=== PATIENT | female | born 1990 | race Caucasian/White ===

== ENCOUNTER 2016-06-24 14:44 | Emergency (ER) | payer SELFPAY ==
--- NOTE | 2016-06-24 15:21 | ER Document Report ---
ED Medical Screen (RME) - General Stated Complaint: DIFFICULTY BREATHING Mode of Arrival: Ambulatory Information source: Patient Notes: Patient reports cough, wheezing and high fever for the past 4 days. Patient reports feeling faint earlier today. hx: jennifer bailey I have greeted and performed a rapid initial assessment of this patient. A comprehensive ED assessment and evaluation of the patient, analysis of test results and completion of the medical decision making process will be conducted by additional ED providers. - Related Data Allergies/Adverse Reactions: acetaminophen Allergy (Verified 06/24/16 15:17) amoxicillin Allergy (Verified 06/24/16 15:17) Physical Exam - Vital signs Vitals: Temp Pulse Resp BP Pulse Ox 97.9 F 125 H 21 H 121/92 H 96 06/24/16 15:15 06/24/16 15:15 06/24/16 15:15 06/24/16 15:15 06/24/16 15:15 - Respiratory Breath sounds: Nonproductive cough - Cardiovascular Rhythm: Tachycardia Heart sounds: S1 appreciated, S2 appreciated Course - Vital Signs Vital signs: Temp Pulse Resp BP Pulse Ox 97.9 F 125 H 21 H 121/92 H 96 06/24/16 15:15 06/24/16 15:15 06/24/16 15:15 06/24/16 15:15 06/24/16 15:15
--- NOTE | 2016-06-24 15:58 | ER Document Report ---
ED General - General Mode of Arrival: Ambulatory Information source: Patient TRAVEL OUTSIDE OF THE [place] IN LAST 30 DAYS: No - HPI Onset: Other - see HPI note Associated symptoms: Productive cough, Diarrhea, Fever, Nausea, Vomiting Exacerbated by: Deep breathing <SHARMIN YOUSIF - Last Filed: 06/24/16 16:47> <CLAIRCHARO RODRIGUEZ MARIANNE - Last Filed: 06/24/16 22:25> - General Chief Complaint: Cough Stated Complaint: DIFFICULTY BREATHING Notes: Patient is a 26 year old female presenting to the emergency department complaining of cough for the past 4 days. Patient denies any asthma history. 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 Patient states he is having some difficulty when trying to take a deep breath because she feels "mucus on her chest." Patient states she has been coughing up blood and mucus. Patient also complains of some vomiting and diarrhea. Patient states she had a fever of 102 F at home. Patient told triage that she also has a history of methamphetamine use but states she has not been using it for 1 month and 2 days now. Patient did not receive a flu vaccination this season. Patient is allergic to Tylenol. (SHARMIN YOUSIF) - Related Data Allergies/Adverse Reactions: acetaminophen Allergy (Verified 06/24/16 15:17) amoxicillin Allergy (Verified 06/24/16 15:17) Past Medical History - General Information source: Patient - Social History Smoking Status: Never Smoker Cigarette use (# per day): No Chew tobacco use (# tins/day): No Frequency of alcohol use: None Family History: None Patient has suicidal ideation: No Patient has homicidal ideation: No - Medical History Medical History: Other - Guillain-Tunica syndrome Surgical Hx: Negative - Immunizations History of Influenza Vaccine for 01/2016 - 06/2016 Season: No <SHARMIN YOUSIF - Last Filed: 06/24/16 16:47> Review of Systems - Review of Systems Constitutional: See HPI, Fever EENT: No symptoms reported Cardiovascular: No symptoms reported Respiratory: See HPI, Cough, Hurts to breathe, Sputum Gastrointestinal: See HPI, Diarrhea, Nausea, Vomiting Genitourinary: No symptoms reported Female Genitourinary: No symptoms reported Musculoskeletal: No symptoms reported Skin: No symptoms reported Hematologic/Lymphatic: No symptoms reported Neurological/Psychological: No symptoms reported -: Yes All other systems reviewed and negative <SHARMIN YOUSIF - Last Filed: 06/24/16 16:47> Physical Exam - Vital signs Interpretation: Tachycardic - General General appearance: Appears well, Alert In distress: Mild - HEENT Head: Normocephalic, Atraumatic Eyes: Normal Pupils: PERRL Mucous membranes: Moist - Respiratory Respiratory status: No respiratory distress Chest status: Nontender Breath sounds: Normal Chest palpation: Normal - Cardiovascular Rhythm: Regular, Tachycardia Heart sounds: Normal auscultation Murmur: No - Abdominal Inspection: Normal Distension: No distension Bowel sounds: Normal Tenderness: Nontender Organomegaly: No organomegaly - Back Back: Normal, Nontender - Extremities General upper extremity: Normal inspection, Normal ROM, Normal strength General lower extremity: Normal inspection, Normal ROM, Normal strength - Neurological Neuro grossly intact: Yes Cognition: Normal Orientation: AAOx4 Moon Coma Scale Eye Opening: Spontaneous Moon Coma Scale Verbal: Oriented Moon Coma Scale Motor: Obeys Commands Moon Coma Scale Total: 15 Speech: Normal - Psychological Associated symptoms: Normal affect, Anxious - Skin Skin Temperature: Warm Skin Moisture: Dry Skin Color: Other - multiple tattoos present <SHARMIN YOUSIF - Last Filed: 06/24/16 16:47> <CHARO MARRERO - Last Filed: 06/24/16 22:25> - Vital signs Vitals: Temp Pulse Resp BP Pulse Ox 97.9 F 125 H 21 H 121/92 H 96 06/24/16 15:15 06/24/16 15:15 06/24/16 15:15 06/24/16 15:15 06/24/16 15:15 (SHARMIN YOUSIF) (CHARO MARRERO) Course - Laboratory Result Diagrams: 06/24/16 15:32 06/24/16 15:32 <SHARMIN YOUSIF - Last Filed: 06/24/16 16:47> - Laboratory Result Diagrams: 06/24/16 15:32 06/24/16 15:32 - Diagnostic Test Radiology reviewed: Image reviewed, Reports reviewed <CHARO MARRERO - Last Filed: 06/24/16 22:25> - Re-evaluation Re-evalutation: 06/24/16 21:43 Patient initially presented with cough and difficulty breathing. Resolved issue nebulizer treatment, and then patient was complaining of right-sided abdominal pain. History of cholecystectomy. Pain was treated with Toradol with good effect. Patient was given morphine for increased pain after CT. Patient with no acute findings on blood work or imaging. Urine is pending for possible pyelonephritis. Pain is been controlled. Heart rate is on after fluids. Tolerating by mouth without difficulty. 06/24/16 22:16 Patient with bacteria on urine. Patient has had side pain and fever at home. Afebrile here. Patient was initially feeling better after Dilaudid and then became sweaty and felt like the room was spinning. Vomited once. Patient is going to be given a dose of Rocephin. She'll be discharged home with pain and nausea medication. The patient has been here now for 7-1/2 hours old like to go home. Will be discharged home after by mouth challenge. Pain is been controlled. 06/24/16 22:35 Feels better after Zofran. Tolerating by mouth. Patient has a recall a ride to come get her. Will be discharged home with pain medication, nausea medication, antibiotics. Return if any worsening or concerning symptoms. Stable for discharge. (CHARO MARRERO) - Vital Signs Vital signs: Temp Pulse Resp BP Pulse Ox 97.5 F 108 H 18 119/83 97 06/24/16 19:05 06/24/16 19:05 06/24/16 19:05 06/24/16 19:05 06/24/16 19:05 (SHARMIN YOUSIF) (CHARO MARRERO) - Laboratory Laboratory results interpreted by mi: 06/24/16 06/24/16 15:32 21:18 Carbon Dioxide 20 L Urine Urobilinogen 4.0 H (CHARO MARRERO) Discharge <SHARMIN YOUSIF - Last Filed: 06/24/16 16:47> <CHARO MARRERO - Last Filed: 06/24/16 22:25> - Discharge Clinical Impression: Pyelonephritis Condition: Stable Disposition: HOME, SELF-CARE Instructions: Pyelonephritis ([facility]), Antinausea Medication ([facility]), Oral Narcotic Medication ([facility]), Antibiotic Therapy ([facility]) Prescriptions: Cefdinir [Omnicef 300 mg Capsule] 1 cap PO BID #30 capsule Ondansetron [Zofran Odt 4 mg Tablet] 1 - 2 tab PO Q4H PRN #15 tab.rapdis PRN Reason: For Nausea/Vomiting Tramadol HCl [Ultram 50 mg Tablet] 50 mg PO BIDP PRN #20 tablet PRN Reason: Forms: Return to Work Scribe Attestation: 06/24/16 22:21 I personally performed the services described in the documentation, reviewed and edited the documentation which was dictated to the scribe in my presence, and it accurately records my words and actions. (CHARO MARRERO) Scribe Documentation - Scribe Written by Scribe:: Sharmin Yousif 06/24/16 17:00 acting as scribe for :: Candi <SHARMIN YOUSIF - Last Filed: 06/24/16 16:47>
[2016-06-24 16:04] LABS: ABSOLUTE EOSINOPHILS # (AUTO) 0.1 10^3/uL (0.0-0.6); ABSOLUTE LYMPHOCYTES (AUTO) 1.9 10^3/uL (0.5-4.7); ABSOLUTE MONOCYTES (AUTO) 0.5 10^3/uL (0.1-1.4); ABSOLUTE NEUT (AUTO) 7.2 10^3/uL (1.7-8.2); BASOPHILS % (AUTO) 0.5 % (0-2); HEMATOCRIT 41.1 % (36.0-47.0); HEMOGLOBIN 14.1 g/dL (12.0-15.5); HGB HCT DIFFERENCE 1.2; LYMPHOCYTES % (AUTO) 19.5 % (13-45); MEAN CORPUSCULAR HGB CONC 34.4 g/dL (32.0-36.0); MEAN CORPUSCULAR VOLUME 81 fl (80-97); MONOCYTES % (AUTO) 4.8 % (3-13); RED BLOOD COUNT 5.05 10^6/uL (3.72-5.28); RED CELL DISTRIBUTION WIDTH 13.2 % (11.5-14.0); SEGMENTED NEUTROPHILS % (AUTO) 74.2 % (42-78); WHITE BLOOD COUNT 9.7 10^3/uL (4.0-10.5)
[2016-06-24 16:25] LABS: ALANINE AMINOTRANSFERASE 17 U/L (9-52); ALBUMIN 4.5 g/dL (3.5-5.0); ALKALINE PHOSPHATASE 86 U/L (38-126); ANION GAP 17 (5-19); ASPARTATE AMINO TRANSFERASE 24 U/L (14-36); BILIRUBIN,TOTAL 0.8 mg/dL (0.2-1.3); BLOOD UREA NITROGEN 8 mg/dL (7-20); CALCIUM 10.2 mg/dL (8.4-10.2); CARBON DIOXIDE 20 mmol/L (22-30); CHLORIDE 103 mmol/L (98-107); GLUCOSE 104 mg/dL (75-110); POTASSIUM 3.7 mmol/L (3.6-5.0); TOTAL PROTEIN 7.8 g/dL (6.3-8.2)
[2016-06-24] MEDS ORDERED: IPRATROPIUM/ALBUTEROL 0.5-2.5 MG/3 ML AMPUL NEB ONE (16:38)
[2016-06-24] MEDS ORDERED: KETOROLAC TROMETHAMINE INJ/PF 30 MG/1 ML SDV IV ONE (16:38)
[2016-06-24] MEDS ORDERED: NORMAL SALINE 1000 ML 1,000 ML IV ONE (17:44)
--- NOTE | 2016-06-24 18:06 | EKG REPORT ---
SEVERITY:- ABNORMAL ECG - SINUS TACHYCARDIA LEFT ATRIAL ABNORMALITY BORDERLINE T ABNORMALITIES, ANTERIOR LEADS : Confirmed by: Lakshmi Briggs MD 24-Jun-2016 18:05:58
[2016-06-24] MEDS ORDERED: MORPHINE SULFATE 10 MG/ML INJ IV ONE (18:58)
[2016-06-24] MEDS ORDERED: DIAZEPAM INJ 10 MG/2 ML DISP.SYRIN IV ONE (19:38)
[2016-06-24] MEDS ORDERED: MAG HYDROX/AL HYDROX/SIMETH SUSP 30 ML UDCUP PO ONE (20:11)
[2016-06-24] MEDS ORDERED: FAMOTIDINE 20 MG TABLET PO ONE (20:11)
[2016-06-24] MEDS ORDERED: SUCRALFATE 1 GM TABLET PO ONE (20:11)
[2016-06-24] MEDS ORDERED: HYDROMORPHONE HCL INJ/PF 2 MG/ML AMPULE IV ONE (20:54)
[2016-06-24] MEDS ORDERED: RINGERS SOLUTION,LACTATED 1,000 ML IV ONE (20:54)
[2016-06-24 21:43] LABS: APPEARANCE,URINE CLEAR; BILIRUBIN,URINE NEGATIVE (NEGATIVE); GLUCOSE, URINE NEGATIVE (NEGATIVE); KETONES,URINE NEGATIVE (NEGATIVE); LEUKOCYTE ESTERASE,URINE NEGATIVE (NEGATIVE); NITRITE,URINE NEGATIVE (NEGATIVE); PROTEIN,URINE NEGATIVE (NEGATIVE); URINE SPECIFIC GRAVITY > 1.060
[2016-06-24] MEDS ORDERED: CEFTRIAXONE 1 GM/D5W RTU 50 ML IV ONE (21:52)
[2016-06-24] MEDS ORDERED: HYDROCODONE/ACETAMINOPHEN 5-325 MG 6 TAB/DSPK PO PRN (22:12)
[2016-06-24] MEDS ORDERED: ONDANSETRON ODT 4 MG TAB (6 TAB/DSPK) PO PRN (22:12)
[2016-06-24] MEDS ORDERED: ONDANSETRON HCL INJ/PF 4 MG/2 ML SDV IV ONE (22:14)
[2016-06-24 23:36] VITALS: BP 129/90
== END 2016-06-24 23:36 | disposition home or self-care (01) ==
LOC: ER 14:44
DX: N12 Tubulo-interstitial nephritis, not specified as acute or chronic (principal); R04.2 Hemoptysis; R11.2 Nausea with vomiting, unspecified; R19.7 Diarrhea, unspecified; R00.0 Tachycardia, unspecified; R07.1 Chest pain on breathing; R06.00 Dyspnea, unspecified; R61 Generalized hyperhidrosis; R10.9 Unspecified abdominal pain; G61.0 Guillain-Barre syndrome; Z90.49 Acquired absence of other specified parts of digestive tract; Z88.6 Allergy status to analgesic agent; Z88.0 Allergy status to penicillin
CPT/HCPCS: 93005; 94640 ×2; 99284; 96375; 96365; 36415; 87040; 87086; 84703; 85025; 80053; 81001; 85379; 87804; 71020; 71275; 74177; 93010; J3360; J1885; J2270; J1170; J2405; J7030; J7120; J0696; J7620